=== PATIENT | male | born 1985 ===

== ENCOUNTER 2023-06-20 04:37 | Day surgery (SDC) | payer OTHER ==
[2023-06-17 12:13] VITALS: BMI 23.5
[2023-06-20] MEDS ORDERED: MIDAZOLAM HCL 2 MG/2 ML SINGLE DOSE VIAL ONE (09:33)
[2023-06-20 10:04] VITALS: TEMP 98.1
[2023-06-20 10:58] VITALS: BP 117/79; PULSE 64; RESP 16
[2023-06-20 11:18] LABS: EOS % 2.3 % (0-4.5); HEMATOCRIT 43.8 % (35.4-49); LYMPH % 22.6 % (8-40); MCHC 34.2 g/dl (32.0-35.9); MEAN CELL VOLUME 84.8 fl (80-96); MEAN PLT VOLUME 7.9 fl (7.5-11.1); MONO % 10.6 % (3.8-10.2); NEUT % 63.5 % (42.8-82.8); PLATELET COUNT 111 10^3/uL (134-434); RBC 5.17 M/mm3 (4.00-5.60); RDW 13.9 % (11.9-15.9); WHITE BLOOD COUNT 3.8 K/mm3 (4.0-10.0)
[2023-06-20 11:23] LABS: INR 1.23 (0.83-1.09); PROTHROMBIN TIME (PATIENT) 14.2 SEC (9.7-13.0)
[2023-06-20 11:41] LABS: BLOOD UREA NITROGEN 12.4 mg/dL (7-18); POTASSIUM 4.5 mmol/L (3.5-5.1)
[2023-06-20 11:42] LABS: ALBUMIN 3.8 g/dl (3.4-5.0)
[2023-06-20 11:45] LABS: BILIRUBIN,DIRECT 0.5 mg/dL (0.0-0.2); CREATININE 0.8 mg/dL (0.55-1.3)
[2023-06-20 11:47] LABS: BILIRUBIN,TOTAL 1.5 mg/dL (0.2-1); TOT PROT 6.9 g/dl (6.4-8.2)
== END 2023-06-20 11:10 | disposition home or self-care (01) ==
LOC: JASU-ENDO 04:37
PROVIDERS: ATTEND Internal Medicine Gastroenterology
PROC: 0DB68ZX Excision of Stomach, Via Natural or Artificial Opening Endoscopic, Diagnostic (ICD-10-PCS; principal; 2023-06-20 11:00)
DX: K76.6 Portal hypertension (principal); K31.89 Other diseases of stomach and duodenum
CPT/HCPCS: 36415; 80053; 82105; 82248; 85025; 85610; 88305-TC; 88342-TC